=== PATIENT | female | born 1995 | race Caucasian/White ===

== ENCOUNTER 2019-02-01 11:54 | Inpatient (IN) | payer MEDICAID ==
[2019-02-01 13:03] LABS: ADD MAN DIFF? NO
[2019-02-01 13:04] LABS: BASOPHILS % 0.2 % (0.0-2.0); EOSINOPHILS # 0.1 10^3/ul (0.0-0.5); EOSINOPHILS % 1.2 % (0.0-7.0); HEMATOCRIT 34.5 % (37.0-47.0); HEMOGLOBIN 11.8 g/dl (12.0-16.0); LYMPHOCYTES # 1.9 10^3/ul (0.8-2.9); LYMPHOCYTES % 16.8 % (15.0-51.0); MEAN CORPUSCULAR HEMOGLOBIN 32.2 pg (29.0-33.0); MEAN CORPUSCULAR HGB CONC 34.2 g/dl (32.0-37.0); MEAN PLATELET VOLUME 9.7 fl (7.4-10.4); MONOCYTE # 0.6 10^3/ul (0.3-0.9); MONOCYTES % 5.5 % (0.0-11.0); NEUTROPHIL # 8.4 10^3/ul (1.6-7.5); NEUTROPHILS % 75.8 % (39.0-77.0); PLATELET COUNT 282 10^3/UL (140-415); RED BLOOD COUNT 3.67 10^6/ul (4.20-5.40); RED CELL DISTRIBUTION WIDTH 12.6 % (11.5-14.5)
[2019-02-01 13:44] LABS: ADD UMIC NO; UR ASCORBIC ACID NEGATIVE (NEGATIVE); UR BACTERIA FEW /HPF (NONE SEEN); UR BILIRUBIN (Dip) NEGATIVE (NEGATIVE); UR BLOOD (Dip) NEGATIVE (NEGATIVE); UR CLARITY SLIGHTLY CLOUDY (CLEAR); UR COLOR YELLOW (YELLOW); UR GLUCOSE (Dip) NEGATIVE (NEGATIVE); UR KETONES (Dip) NEGATIVE (NEGATIVE); UR LEUKOCYTE ESTERASE (Dip) NEGATIVE Leu/ul (NEGATIVE); UR MUCUS FEW /HPF (NONE SEEN); UR NITRITE (Dip) NEGATIVE (NEGATIVE); UR RBC 1 /HPF (0-5); UR SPECIFIC GRAVITY (Dip) 1.013 (1.003-1.030); UR SQUAMOUS EPITHELIAL CELL FEW /HPF (FEW); UR TOTAL PROTEIN (Dip) NEGATIVE (NEGATIVE); UR UROBILINOGEN (Dip) NEGATIVE (NEGATIVE); UR WBC 0 /HPF (0-5)
[2019-02-01] MEDS: BETAMET NA PHOS/AC(6 MG/ML) 2 ML INJ SYG IM (16:10)
[2019-02-01] MEDS: MAGNESIUM SULFATE 4 GM/100 ML 100 ML IV (16:12)
[2019-02-01] MEDS: MAGNESIUM SULFATE 20 GM/500 ML 500 ML IV (16:40)
[2019-02-01 19:42] LABS: ALANINE AMINOTRANSFERASE 12 IU/L (13-69); ALBUMIN 3.4 g/dl (3.3-4.9); ALBUMIN/GLOBULIN RATIO 1.09; ALKALINE PHOSPHATASE 81 IU/L (42-121); ANION GAP 8 (5-13); ASPARTATE AMINO TRANSFERASE 17 IU/L (15-46); BILIRUBIN,INDIRECT 0.3 mg/dl (0-1.1); BILIRUBIN,TOTAL 0.3 mg/dl (0.2-1.3); CALCIUM 7.8 mg/dl (8.4-10.2); CARBON DIOXIDE 25 mmol/L (21-31); CHLORIDE 103 mmol/L (97-110); Estimated GFR > 60 mL/min (>60); GLUCOSE 164 mg/dl (70-220); POTASSIUM 3.8 mmol/L (3.5-5.1); SODIUM 136 mmol/L (135-144); TOTAL PROTEIN 6.5 g/dl (6.1-8.1)
[2019-02-01 19:43] LABS: MAGNESIUM 4.3 mg/dl (1.7-2.5)
[2019-02-01 19:44] LABS: BLOOD UREA NITROGEN < 2 mg/dl (7-20)
[2019-02-02 01:01] LABS: MAGNESIUM 5.1 mg/dl (1.7-2.5)
[2019-02-02] MEDS: MAGNESIUM SULFATE 20 GM/500 ML 500 ML IV ×3 (02:17→22:01)
[2019-02-02] MEDS: LACTATED RINGER'S 1,000 ML IV ×2 (05:47→22:02)
[2019-02-02 07:08] LABS: MAGNESIUM 5.4 mg/dl (1.7-2.5)
[2019-02-02] MEDS: FERROUS SULFATE (EC) 325 MG TAB PO (10:23)
[2019-02-02] MEDS: PRENATAL VITAMIN PO (10:23)
[2019-02-02 12:52] LABS: MAGNESIUM 5.6 mg/dl (1.7-2.5)
[2019-02-02] MEDS: BETAMET NA PHOS/AC(6 MG/ML) 2 ML INJ SYG IM (17:31)
[2019-02-02 18:24] LABS: MAGNESIUM 5.9 mg/dl (1.7-2.5)
[2019-02-03 01:09] LABS: MAGNESIUM 5.4 mg/dl (1.7-2.5)
[2019-02-03] MEDS: FERROUS SULFATE (EC) 325 MG TAB PO (08:06)
[2019-02-03] MEDS: PRENATAL VITAMIN PO (08:06)
[2019-02-03] MEDS: LACTATED RINGER'S 1,000 ML IV ×2 (08:07→22:00)
[2019-02-03] MEDS: MAGNESIUM SULFATE 20 GM/500 ML 500 ML IV (08:14)
[2019-02-04] MEDS: FERROUS SULFATE (EC) 325 MG TAB PO (09:05)
[2019-02-04] MEDS: PRENATAL VITAMIN PO (09:05)
== END 2019-02-04 19:05 | disposition home or self-care (01) | DRG 833 ==
LOC: OBT 11:54 → PP1 02-02 01:07 → L-D 11:54 → OBT 14:15 → L-D 14:15
DX: O47.02 False labor before 37 completed weeks of gestation, second trimester (principal); Z3A.25 25 weeks gestation of pregnancy
CPT/HCPCS: 76817; 76818; 80053; 81001; 81003; 83735; 85025; 87086